=== PATIENT | female | born 1955 | race Caucasian/White ===

== ENCOUNTER 2021-10-18 11:02 | Emergency (ER) | payer MEDICARE, BC ==
[2021-10-18 12:34] LABS: PTT 23.1 sec (22.0-33.0); Prothrombin Time 10.4 sec (9.5-12.1)
[2021-10-18] MEDS ORDERED: Lidocaine 1% PF 5 ML VIAL ONE (12:54)
[2021-10-18] MEDS ORDERED: Sodium Bicarbonate 2.5 MEQ/5 ML VIAL ONE (12:54)
== END 2021-10-18 14:02 ==
LOC: CSHERS 11:02
DX: Z45.2 Encounter for adjustment and management of vascular access device (principal)
CPT/HCPCS: 36569; 85610; 85730; 99283; C1751

== ENCOUNTER 2021-10-22 13:16 | Emergency (ER) | payer MEDICARE, BC | END 2021-10-22 13:56 | disposition home or self-care (01) | LOC: CSHERS 13:16 | DX: T82.898A Other specified complication of vascular prosthetic devices, implants and grafts, initial encounter (principal); K21.9 Gastro-esophageal reflux disease without esophagitis | CPT/HCPCS: 99283 ==

== ENCOUNTER 2022-04-17 11:41 | Outpatient (CLI) | payer MEDICARE, BC | END 2022-04-17 11:42 | disposition home or self-care (01) | LOC: CSHMAMMO 11:41 | PROVIDERS: ATTEND Family Medicine | DX: Z12.31 Encounter for screening mammogram for malignant neoplasm of breast (principal); Z80.3 Family history of malignant neoplasm of breast | CPT/HCPCS: 77063; 77067 ==

== ENCOUNTER 2022-10-25 13:25 | Outpatient (CLI) | payer MEDICARE, BC | END 2022-10-25 13:26 | disposition home or self-care (01) | LOC: CSHCT 13:25 | PROVIDERS: ATTEND Family Medicine | DX: L03.213 Periorbital cellulitis (principal) | CPT/HCPCS: 70482; 82565 ==

== ENCOUNTER 2023-04-24 09:27 | Outpatient (CLI) | payer BC, MEDICARE | END 2023-04-24 09:28 | disposition home or self-care (01) | LOC: CSHMAMMO 09:27 | PROVIDERS: ATTEND Family Medicine | DX: Z12.31 Encounter for screening mammogram for malignant neoplasm of breast (principal); Z80.3 Family history of malignant neoplasm of breast | CPT/HCPCS: 77063; 77067 ==